=== PATIENT | male | born 1950 | race Caucasian/White ===

== ENCOUNTER 2019-03-23 07:13 | Day surgery (SDC) | payer MEDICARE, OTHER ==
[~2019-03-23 07:13] MED LIST: Dextrose 5%-0.45% NaCl 1,000 ML IV SCH; Midazolam 1 MG/ML 2 ML SDV ONE; fentaNYL 100 MCG/2 ML SDV ONE
[2019-03-23] MEDS ORDERED: fentaNYL 100 MCG/2 ML SDV IV ONE ×3 (07:14→08:14)
[2019-03-23] MEDS ORDERED: Midazolam 1 MG/ML 2 ML SDV IV ONE ×7 (07:14→08:23)
--- NOTE | 2019-03-23 12:24 | OR ---
DATE: 03/23/2019 PROCEDURE PERFORMED: Total colonoscopy, narrowband imaging, and multiple cold snare polypectomies. INSTRUMENT USED: PCF-H190DL Olympus video colonoscope. PREMEDICATIONS: Fentanyl 100 mcg intravenous, Versed 4 mg intravenous. Nasal O2 cannula. The procedure was done under pulse oximetry, BP recording, and cardiac catheterization technologist. INDICATION: The patient with positive FIT. Colonoscopic examination is done for detection of any polypoid lesions and removal, endoscopic hemostasis therapy if needed. DESCRIPTION OF PROCEDURE: Initial rectal exam was unremarkable. Rigid anoscopy showed small internal hemorrhoids without bleeding from them. Colonoscope was passed with ease. Scattered diverticula were noted in the distal left colon along with deformity. The scope was passed with ease up to the ileocecal area. Photographs were taken of the cecum, identified by double-bulged ileocecal folds. No bleeding was noted from any of the visualized areas at the commencement of the examination. There was moderate amount of fecal material that had to be aspirated. Bowel preparation Effie scale 2 in all the regions. In the cecum, mid ascending colon, proximal and distal transverse colon showed 5 to 8 mm sized benign-appearing polyps. Photographs were taken of the largest polyp, multiple cold snare polypectomies were done, the tissues were retrieved and sent for histopathology. NBI views were obtained of the polyps. No stricture. No vascular ectasia. No large isolated ulcerations seen. No evidence of diffuse inflammatory bowel disease in the form of friability, contact bleeding, or ulcerations. Probing the proximal sides of folds and flexures using adequate distention and clearing up the stool material, withdrawal of the scope was made. No bleeding was noted from any of the visualized areas at the completion of the examination. IMPRESSION: 1. Internal hemorrhoids. 2. Diverticulosis. 3. Multiple colonic polyps. The patient tolerated the procedure well. [facility] /[id number]
== END 2019-03-23 10:40 | disposition home or self-care (01) ==
LOC: DL.ENDO 07:13
PROVIDERS: ATTEND Internal Medicine Gastroenterology
DX: D12.2 Benign neoplasm of ascending colon (principal); D12.0 Benign neoplasm of cecum; D12.3 Benign neoplasm of transverse colon; K57.31 Diverticulosis of large intestine without perforation or abscess with bleeding; K64.8 Other hemorrhoids; N52.9 Male erectile dysfunction, unspecified; J30.9 Allergic rhinitis, unspecified; J45.909 Unspecified asthma, uncomplicated; E66.09 Other obesity due to excess calories; Z68.32 Body mass index [BMI] 32.0-32.9, adult; Z87.891 Personal history of nicotine dependence; Z79.82 Long term (current) use of aspirin; Z79.899 Other long term (current) drug therapy
CPT/HCPCS: 45385; J2250; J3010; J7042; 88305